=== PATIENT | female | born 1985 | race Caucasian/White ===

== ENCOUNTER 2020-11-28 11:34 | Emergency (ER) | payer OTHER, SELFPAY ==
--- NOTE | ~2020-11-28 | XR_ITS ---
XR ankle LT min 3V 11/28/2020 12:20 Indication: Left ankle pain after fall Procedure: 4 views left ankle Comparison: No prior studies for comparison. Findings: There is lateral and anterior soft tissue swelling. No fracture or traumatic malalignment. There is anatomic alignment of the ankle mortise. Talar dome is normal. No foreign bodies. Impression: 1: No acute fracture. Reviewed, dictated and finalized at location A. Impression: 1: No acute fracture.
[2020-11-28 12:07] VITALS: BP 119/91; PULSE 101; RESP 16; TEMP 36.2; O2SAT 99
[2020-11-28 12:10] VITALS: BP 141/85
[2020-11-28 12:11] VITALS: BP 119/91; PULSE 101; RESP 16; TEMP 36.2; O2SAT 99
--- NOTE | 2020-11-28 12:23 | ED.GENADULT ---
HPI - General Adult General Chief complaint: Extremity Injury, Lower Stated complaint: left ankle Time Seen by Provider: 11/28/20 12:23 Source: patient and RN notes reviewed Mode of arrival: wheelchair Limitations: no limitations History of Present Illness HPI narrative: 35-year-old female presents with complains of tenderness and swelling to the left ankle for the past 10 hours. Kezia reports getting out of bed this morning approximately 02:00 and stepped on a vent causing LT foot to bend to the side and ankle to twist with a felt pop. Ice and Advil 800mg last at 11:00 am without relief. No radiating pain. No numbness or tingling or loss of mobility. Patient report inability to bear weight. Exacerbation factor consist of certain movement and bearing weight. No relieving factors. Denies discoloration. Denies altered sensation, back pain, and suspected foreign body. Denies fever or chills. LMP11/27/2020. The patient reports she was diagnosed with COVID-25 September 2020, no new symptoms. The patient reports she is not waiting for the results of a COVID-19 lab test. The patient reports she do not have weakness or fatigue. The patient reports she do not have a new or worsening cough or shortness of breath. Denies chest pain. The patient reports she do not have any rhinorrhea, congestion, sore throat, loss of taste or smell, nausea, vomiting, abdominal pain, and diarrhea. Tolerating po intake well. Denies recent traveling. Denies concerns for COVID-19 or exposures been home with limited outdoor exposure except for essential household needs and return home. At this time, patient is not suspected of having COVID-19. Some parts of this dictation were generated by voice recognition software and may contain typographical and/or grammatical inaccuracies. Related Data Home Medications Medication Instructions Recorded Confirmed alprazolam 2 mg PO Q8H PRN 11/28/20 11/28/20 dextroamphetamine-amphetamine 20 mg PO BID 11/28/20 11/28/20 duloxetine 60 mg PO DAILY 11/28/20 11/28/20 Allergies Allergy/AdvReac Type Severity Reaction Status Date / Time Sulfa (Sulfonamide Allergy Unknown Verified 02/28/14 08:34 Antibiotics) Review of Systems Review of Systems: Narrative: CONSTITUTIONAL: Denies fever, chills, sweats. EYES: Denies visual changes, redness, discharge. ENT: Denies rhinorrhea, congestion, sore throat, otalgia. CARDIOVASCULAR: Denies chest pain, palpitations, edema. RESPIRATORY: Denies dyspnea, wheezing, cough. GASTROINTESTINAL: Denies abdominal pain, nausea, vomiting, diarrhea. SKIN: Denies rash or itching. MUSCULOSKELETAL: Denies acute back pain or myalgia. Complains of LT ankle swelling and pain. NEUROLOGIC: Denies numbness or focal weakness. PSYCHIATRIC: Denies anxiety or depression. All other systems reviewed & are unremarkable except as noted in HPI and below. [facility] Past Medical History Medical History (Updated 12/02/20 @ 15:25 by SANDRITA Ren) Anxiety Depression Ovarian cyst Surgical History Surgical History (Updated 11/28/20 @ 13:23 by SANDRITA Ren) History of removal of cyst History of tubal ligation Family History Family History (Updated 11/28/20 @ 13:24 by SANDRITA Ren) Father Hypertension Mother Hypertension Other Cerebrovascular accident Family history of allergic disorder Family history of heart disease in male family member before age 55 Social History Social History (Updated 11/28/20 @ 13:24 by SANDRITA Ren) Smoking status: Never smoker Tobacco type: cigarettes Second hand tobacco smoke exposure: No Alcohol intake: never Substance use: never Living arrangements: with family Occupation/Education: unemployed Gender identity (if verbalized by the patient): Female Sexual Orientation (if Verbalized by the Patient): Straight or Heterosexual Comments At time of signature, agree with nurse past medical, surgica
== END 2020-11-28 13:10 | disposition home or self-care (01) ==
PROVIDERS: Emergency Provider Nurse Practitioner Family
DX: S93.402A Sprain of unspecified ligament of left ankle, initial encounter (principal); X50.9XXA Other and unspecified overexertion or strenuous movements or postures, initial encounter; F41.9 Anxiety disorder, unspecified; F98.8 Other specified behavioral and emotional disorders with onset usually occurring in childhood and adolescence
CPT/HCPCS: 73610; 99213; G0463